=== PATIENT | male | born 1965 | race Caucasian/White ===

== ENCOUNTER 2018-09-11 10:22 | Emergency (ER) | payer MEDICAID ==
[~2018-09-11] VITALS: Ht 177.8 cm; Wt 72.6 kg
[2018-09-11] MEDS ORDERED: SODIUM CHLORIDE 0.9% 1,000 ML IVB ONE (10:38)
[2018-09-11] MEDS ORDERED: KETOROLAC TROMETH 30 MG/ML 1ML VIAL IV ONE (11:45)
[2018-09-11 12:09] LABS: Basophils # (auto) 0.1 uL; Basophils % (auto) 0.7 % (0.0-2.0); Eosinophils # (auto) 0 uL; Eosinophils % (auto) 0.2 % (0.0-7.0); Hematocrit 52.7 % (41.0-53.0); Hemoglobin 17.6 g/dL (13.5-17.5); Lymphocytes # (auto) 2.1 uL; Lymphocytes % (auto) 16.7 % (10.0-50.0); Mean Corpuscular Hemoglobin 33.3 pg (28.0-32.0); Mean Corpuscular Hgb Conc. 33.5 g/dL (32.0-36.0); Mean Corpuscular Volume 99.6 fL (80.0-100.0); Monocytes # (auto) 0.8 uL; Monocytes % (auto) 6.4 % (0.0-12.0); Neutrophils # (auto) 9.7 uL; Platelet Count (auto) 328 10^3/uL (140-450); Red Blood Cells 5.29 10^6/uL (4.5-5.90); Red Cell Distribution Width 13.7 % (11.8-14.3); White Blood Cell 12.8 10^3/uL (4.4-10.8)
[2018-09-11 12:46] LABS: Albumin 3.8 g/dL (3.4-5.0); BUN/Creatinine Ratio 22.2; Calcium 8.1 mg/dL (8.5-10.1); Magnesium 2.4 mg/dL (1.6-2.6); Potassium 4.2 mmol/L (3.5-5.1)
[2018-09-11 12:48] LABS: Bilirubin, Total 0.5 mg/dL (0.2-1.0); Total Protein 7.2 g/dL (6.4-8.2)
[2018-09-11 13:00] VITALS: BP 137/81
[2018-09-11 13:06] LABS: Blood Alcohol 381.2 mg/dL (0-5)
== END 2018-09-11 15:46 | disposition home or self-care (01) ==
LOC: ER 10:22 → EDBD 10:22 → ER 15:46
DX: S70.01XA Contusion of right hip, initial encounter (principal); S80.01XA Contusion of right knee, initial encounter; F10.129 Alcohol abuse with intoxication, unspecified; I10 Essential (primary) hypertension; F17.210 Nicotine dependence, cigarettes, uncomplicated; V03.99XA Pedestrian with other conveyance injured in collision with car, pick-up truck or van, unspecified whether traffic or nontraffic accident, initial encounter; Y93.89 Activity, other specified; Y99.8 Other external cause status; Y92.89 Other specified places as the place of occurrence of the external cause
CPT/HCPCS: 36415; 73502; 73562; 80053; 80320; 83735; 85025; 96361; 96374; 99284; J1885

== ENCOUNTER 2019-01-26 15:59 | Emergency (ER) | payer MEDICAID ==
[~2019-01-26] VITALS: Ht 175.3 cm; Wt 72.6 kg
[2019-01-26] MEDS ORDERED: SODIUM CHLORIDE 0.9% 3,000 ML IV ONE (18:45)
[2019-01-26 19:02] VITALS: BP 128/80
[2019-01-26 19:21] LABS: Basophils # (auto) 0 uL; Basophils % (auto) 0.5 % (0.0-2.0); Eosinophils # (auto) 0 uL; Eosinophils % (auto) 0.3 % (0.0-7.0); Lymphocytes # (auto) 1.8 uL; Monocytes # (auto) 0.5 uL; Neutrophils # (auto) 6.2 uL; Red Cell Distribution Width 13.5 % (11.8-14.3); White Blood Cell 8.5 10^3/uL (4.4-10.8)
[2019-01-26 19:23] LABS: Hematocrit 43.4 % (41.0-53.0); Lymphocytes % (auto) 20.8 % (10.0-50.0); Mean Corpuscular Hemoglobin 34.3 pg (28.0-32.0); Mean Corpuscular Hgb Conc. 34.6 g/dL (32.0-36.0); Monocytes % (auto) 5.4 % (0.0-12.0); Nucleated Red Blood Cells % 0.1 %; Platelet Count (auto) 222 10^3/uL (140-450); Red Blood Cells 4.38 10^6/uL (4.5-5.90)
[2019-01-26 19:33] LABS: Albumin 3.1 g/dL (3.4-5.0); Calcium 7.6 mg/dL (8.5-10.1); Potassium 4.2 mmol/L (3.5-5.1)
[2019-01-26 19:36] LABS: BUN/Creatinine Ratio 20.3; Bilirubin, Total 1.1 mg/dL (0.2-1.0); Total Protein 5.7 g/dL (6.4-8.2)
== END 2019-01-26 20:48 | disposition home or self-care (01) ==
LOC: EDUNIT# 15:59 → EDBD 15:59 → ER 15:59
DX: S01.01XA Laceration without foreign body of scalp, initial encounter (principal); S43.402A Unspecified sprain of left shoulder joint, initial encounter; I10 Essential (primary) hypertension; F17.210 Nicotine dependence, cigarettes, uncomplicated; F10.129 Alcohol abuse with intoxication, unspecified; W18.39XA Other fall on same level, initial encounter; Y93.89 Activity, other specified; Y99.8 Other external cause status; Y92.811 Bus as the place of occurrence of the external cause
CPT/HCPCS: 12002; 36415; 70450; 73030; 80053; 80320; 85025; 93005

== ENCOUNTER 2022-09-21 17:08 | Emergency (ER) | payer MEDICAID ==
[~2022-09-21] VITALS: Ht 177.8 cm; Wt 72.7 kg
[~2022-09-21 17:08] MED LIST: HYDR12.56 PO
[2022-09-21] MEDS ORDERED: MECLIZINE HCL 25 MG TAB PO ONE (19:00)
[2022-09-21 19:41] LABS: Basophils # (auto) 0.1 10 ^3/uL (0-0.2); Eosinophils # (auto) 0.1 10 ^3/uL (0-0.8); Eosinophils % (auto) 1.6 % (0.0-7.0); Hematocrit 49.2 % (41.0-53.0); Hemoglobin 16.7 g/dL (13.5-17.5); Lymphocytes # (auto) 2.5 10 ^3/uL (0.4-5.4); Lymphocytes % (auto) 29.9 % (10.0-50.0); Mean Corpuscular Volume 97.2 fL (80.0-100.0); Monocytes # (auto) 0.7 10 ^3/uL (0-1.3); Monocytes % (auto) 8.2 % (0.0-12.0); Neutrophils # (auto) 4.9 10 ^3/uL (1.6-8.6); Neutrophils % (auto) 59.3 % (37.0-80.0); Nucleated Red Blood Cells % 0.2 %; Red Blood Cells 5.06 10^6/uL (4.5-5.90); Red Cell Distribution Width 14.4 % (11.8-14.3); White Blood Cell 8.3 10^3/uL (4.4-10.8)
[2022-09-21 19:46] LABS: Potassium 4.4 mmol/L (3.5-5.1)
[2022-09-21 19:50] LABS: Albumin 3.7 g/dL (3.4-5.0); BUN/Creatinine Ratio 20.8; Calcium 8.9 mg/dL (8.5-10.1); Magnesium 2.3 mg/dL (1.6-2.6)
[2022-09-21 19:53] LABS: Bilirubin, Total 0.5 mg/dL (0.2-1.0); Total Protein 6.3 g/dL (6.4-8.2)
[2022-09-21 22:09] VITALS: BP 114/70
== END 2022-09-21 22:43 | disposition home or self-care (01) ==
LOC: EDBD 17:08 → ER 17:10
DX: R42 Dizziness and giddiness (principal); R51.9 Headache, unspecified; I10 Essential (primary) hypertension; Z59.00 Homelessness unspecified
CPT/HCPCS: 36415; 70450; 71045; 80053; 83735; 83880; 84484; 85025; 93005; 99285; J8597

== ENCOUNTER 2022-09-24 16:08 | Inpatient (IN) | payer MEDICAID ==
[~2022-09-24] VITALS: Ht 172.7 cm; Wt 71.2 kg
[2022-09-24 22:29] LABS: Basophils # (auto) 0.1 10 ^3/uL (0-0.2); Basophils % (auto) 0.9 % (0.0-2.0); Eosinophils # (auto) 0.1 10 ^3/uL (0-0.8); Eosinophils % (auto) 0.8 % (0.0-7.0); Hematocrit 45.2 % (41.0-53.0); Hemoglobin 15.8 g/dL (13.5-17.5); Lymphocytes # (auto) 2.5 10 ^3/uL (0.4-5.4); Lymphocytes % (auto) 29.7 % (10.0-50.0); Mean Corpuscular Hemoglobin 33.6 pg (28.0-32.0); Mean Corpuscular Volume 96.2 fL (80.0-100.0); Monocytes # (auto) 0.4 10 ^3/uL (0-1.3); Monocytes % (auto) 4.5 % (0.0-12.0); Neutrophils # (auto) 5.4 10 ^3/uL (1.6-8.6); Neutrophils % (auto) 64.1 % (37.0-80.0); Nucleated Red Blood Cells % 0.1 %; Red Cell Distribution Width 14.3 % (11.8-14.3); White Blood Cell 8.4 10^3/uL (4.4-10.8)
[2022-09-24 22:50] LABS: Albumin 3.3 g/dL (3.4-5.0); BUN/Creatinine Ratio 23.1; Calcium 8.1 mg/dL (8.5-10.1); Potassium 4.3 mmol/L (3.5-5.1)
[2022-09-24 22:52] LABS: Bilirubin, Total 0.2 mg/dL (0.2-1.0); Total Protein 5.8 g/dL (6.4-8.2)
[2022-09-25] MEDS ORDERED: MORPHINE SULFATE 4 MG/ML SYR/VIAL IV PRN (02:00)
[2022-09-25] MEDS ORDERED: LORazepam 0.5 MG TAB PO PRN (02:00)
[2022-09-25] MEDS ORDERED: ZOLPIDEM TARTRATE 5 MG TAB PO PRN (02:00)
[2022-09-25] MEDS ORDERED: ONDANSETRON HCL 4 MG/2 ML VIAL IV PRN (02:00)
[2022-09-25] MEDS ORDERED: NITROGLYCERIN 0.4 MG SL TAB SL PRN (02:00)
[2022-09-25] MEDS: SODIUM CHLORIDE 0.9% 1,000 ML IV SCH ×2 (02:51→16:16)
[2022-09-25 03:19] LABS: Urine Bacteria None Seen /hpf (None Seen); Urine WBC None Seen /hpf (0 - 3)
[2022-09-25 03:54] LABS: Urine Blood Normal /uL (Negative)
[2022-09-25 07:06] LABS: Basophils # (auto) 0.1 10 ^3/uL (0-0.2); Basophils % (auto) 0.8 % (0.0-2.0); Eosinophils # (auto) 0.1 10 ^3/uL (0-0.8); Hematocrit 47.5 % (41.0-53.0); Hemoglobin 15.9 g/dL (13.5-17.5); Lymphocytes # (auto) 1.8 10 ^3/uL (0.4-5.4); Lymphocytes % (auto) 19.3 % (10.0-50.0); Mean Corpuscular Hemoglobin 32.3 pg (28.0-32.0); Mean Corpuscular Hgb Conc. 33.4 g/dL (32.0-36.0); Mean Corpuscular Volume 96.7 fL (80.0-100.0); Monocytes # (auto) 0.4 10 ^3/uL (0-1.3); Monocytes % (auto) 4.4 % (0.0-12.0); Neutrophils # (auto) 7.1 10 ^3/uL (1.6-8.6); Neutrophils % (auto) 74.5 % (37.0-80.0); Red Blood Cells 4.91 10^6/uL (4.5-5.90); Red Cell Distribution Width 14.2 % (11.8-14.3); White Blood Cell 9.5 10^3/uL (4.4-10.8)
[2022-09-25 07:20] LABS: BUN/Creatinine Ratio 22.6; Potassium 4.3 mmol/L (3.5-5.1)
[2022-09-25] MEDS: CLOPIDOGREL BISULFATE 75 MG TAB PO SCH (09:24)
[2022-09-25] MEDS: DOCUSATE SOD 100 MG CAP PO SCH (09:24)
[2022-09-25] MEDS: ENOXAPARIN SOD 40 MG/0.4 ML SYRINGE SC SCH (09:24)
[2022-09-25] MEDS: ASPirin 81 mg TAB PO SCH (09:24)
[2022-09-25] MEDS: CARVEDILOL 3.125 MG TAB PO SCH ×2 (09:25→22:09)
[2022-09-25] MEDS: LISINOPRIL 5 MG TAB PO SCH (09:25)
[2022-09-25] MEDS ORDERED: ENOXAPARIN SOD 30 MG/0.3 ML SYRINGE IV SCH (10:00)
[2022-09-25 17:09] VITALS: BP 143/84
[2022-09-25] MEDS ORDERED: THIAMINE HCL 100 MG TAB PO ONE (17:45)
[2022-09-25] MEDS ORDERED: MULTIPLE VITAMINS W/ MINERALS TAB PO ONE (17:45)
[2022-09-25] MEDS ORDERED: FOLIC ACID 1 MG TAB PO ONE (17:45)
[2022-09-25 19:50] VITALS: BP 120/77
[2022-09-25 22:00] VITALS: BP 120/77
[2022-09-25] MEDS: ATORVASTATIN 20 MG TAB PO SCH (22:10)
[2022-09-25 23:09] LABS: Amphetamine Screen, Urine NEGATIVE (NEGATIVE); Barbiturate Scree,Urine NEGATIVE (NEGATIVE); Benzodiazephine Screen, Urine NEGATIVE (NEGATIVE); Cannabinoid Screen, Urine NEGATIVE (NEGATIVE); Cocaine Screen, Urine NEGATIVE (NEGATIVE); Opiate Scree,Urine NEGATIVE (NEGATIVE); Phencyclidine Screen, Urine NEGATIVE (NEGATIVE)
[2022-09-26 01:57] LABS: Urine Amorphous Crystal FEW /hpf (None Seen); Urine Bacteria NONE SEEN /hpf (None Seen); Urine Blood Negative /uL (Negative); Urine Specific Gravity 1.026 (1.001-1.035); Urine WBC 3 /hpf (0 - 3)
[2022-09-26] MEDS: SODIUM CHLORIDE 0.9% 1,000 ML IV SCH ×2 (04:55→18:00)
[2022-09-26 05:00] VITALS: BP 143/98
[2022-09-26 07:38] LABS: Potassium 4.5 mmol/L (3.5-5.1)
[2022-09-26 07:44] LABS: BUN/Creatinine Ratio 26.3; Calcium 8.5 mg/dL (8.5-10.1)
[2022-09-26 08:35] VITALS: BP 131/85
[2022-09-26] MEDS: THIAMINE HCL 100 MG TAB PO SCH (10:57)
[2022-09-26] MEDS: ASPirin 81 mg TAB PO SCH (10:57)
[2022-09-26] MEDS: FOLIC ACID 1 MG TAB PO SCH (10:57)
[2022-09-26] MEDS: DOCUSATE SOD 100 MG CAP PO SCH (10:58)
[2022-09-26] MEDS: LISINOPRIL 5 MG TAB PO SCH (10:59)
[2022-09-26] MEDS: MULTIPLE VITAMINS W/ MINERALS TAB PO SCH (10:59)
[2022-09-26] MEDS: CARVEDILOL 3.125 MG TAB PO SCH ×2 (10:59→21:33)
[2022-09-26 12:35] VITALS: BP 128/81
[2022-09-26 16:30] VITALS: BP 107/77
[2022-09-26] MEDS: CLOPIDOGREL BISULFATE 75 MG TAB PO SCH (16:44)
[2022-09-26] MEDS: ENOXAPARIN SOD 40 MG/0.4 ML SYRINGE SC SCH (16:45)
[2022-09-26] MEDS: ATORVASTATIN 20 MG TAB PO SCH (21:32)
[2022-09-26] MEDS: ACETAMINOPHEN 325 MG TAB PO PRN (21:39)
[2022-09-26 22:00] VITALS: BP 108/72
[2022-09-27 05:00] VITALS: BP 111/74
[2022-09-27] MEDS: SODIUM CHLORIDE 0.9% 1,000 ML IV SCH ×2 (05:23→20:56)
[2022-09-27 08:35] VITALS: BP 127/86
[2022-09-27] MEDS: ASPirin 81 mg TAB PO SCH (10:04)
[2022-09-27] MEDS: THIAMINE HCL 100 MG TAB PO SCH (10:05)
[2022-09-27] MEDS: FOLIC ACID 1 MG TAB PO SCH (10:05)
[2022-09-27] MEDS: DOCUSATE SOD 100 MG CAP PO SCH (10:05)
[2022-09-27] MEDS: MULTIPLE VITAMINS W/ MINERALS TAB PO SCH (10:06)
[2022-09-27] MEDS: CARVEDILOL 3.125 MG TAB PO SCH ×2 (10:06→22:01)
[2022-09-27] MEDS: CLOPIDOGREL BISULFATE 75 MG TAB PO SCH (10:07)
[2022-09-27] MEDS: ENOXAPARIN SOD 40 MG/0.4 ML SYRINGE SC SCH (10:07)
[2022-09-27] MEDS: LISINOPRIL 5 MG TAB PO SCH (10:07)
[2022-09-27 12:35] VITALS: BP 110/80
[2022-09-27 16:20] VITALS: BP 121/76
[2022-09-27 21:53] VITALS: BP 117/77
[2022-09-27] MEDS: ATORVASTATIN 20 MG TAB PO SCH (22:00)
[2022-09-27] MEDS: ACETAMINOPHEN 325 MG TAB PO PRN (22:01)
[2022-09-28 04:56] VITALS: BP 109/76
[2022-09-28 09:00] VITALS: BP 122/82
[2022-09-28] MEDS: ASPirin 81 mg TAB PO SCH (10:02)
[2022-09-28] MEDS: FOLIC ACID 1 MG TAB PO SCH (10:02)
[2022-09-28] MEDS: THIAMINE HCL 100 MG TAB PO SCH (10:02)
[2022-09-28] MEDS: CARVEDILOL 3.125 MG TAB PO SCH (10:03)
[2022-09-28] MEDS: MULTIPLE VITAMINS W/ MINERALS TAB PO SCH (10:03)
[2022-09-28] MEDS: DOCUSATE SOD 100 MG CAP PO SCH (10:03)
[2022-09-28] MEDS: ENOXAPARIN SOD 40 MG/0.4 ML SYRINGE SC SCH (10:04)
[2022-09-28] MEDS: LISINOPRIL 5 MG TAB PO SCH (10:04)
[2022-09-28] MEDS: CLOPIDOGREL BISULFATE 75 MG TAB PO SCH (10:04)
[2022-09-28] MEDS: SODIUM CHLORIDE 0.9% 1,000 ML IV SCH (10:09)
[2022-09-28 12:21] VITALS: BP 122/82
[2022-09-28 12:40] VITALS: BP 125/76
== END 2022-09-28 14:48 | disposition home or self-care (01) | DRG 111 ==
LOC: EDBD 16:08 → ER 16:08 → TELE 09-25 01:55 → TELE-WESTW 09-25 13:26
PROVIDERS: ADMIT Hospitalist; ATTEND Internal Medicine
DX: R42 Dizziness and giddiness (principal); I21.A1 Myocardial infarction type 2; S09.90XA Unspecified injury of head, initial encounter; F03.90 Unspecified dementia, unspecified severity, without behavioral disturbance, psychotic disturbance, mood disturbance, and anxiety; W01.0XXA Fall on same level from slipping, tripping and stumbling without subsequent striking against object, initial encounter; Z20.822 Contact with and (suspected) exposure to COVID-19; I10 Essential (primary) hypertension; Z59.00 Homelessness unspecified; Z80.6 Family history of leukemia; Z82.0 Family history of epilepsy and other diseases of the nervous system; Z82.49 Family history of ischemic heart disease and other diseases of the circulatory system; Z83.3 Family history of diabetes mellitus; Y93.89 Activity, other specified; Y92.89 Other specified places as the place of occurrence of the external cause; Y99.8 Other external cause status; Z71.41 Alcohol abuse counseling and surveillance of alcoholic; Z72.0 Tobacco use; F10.129 Alcohol abuse with intoxication, unspecified
CPT/HCPCS: 36415; 70450; 71045; 80048; 80053; 80061; 80307; 80320; 81001; 83036; 83735; 84439; 84443; 84484; 85025; 87426; 93005; 93306; 97163; G0378

== ENCOUNTER 2025-01-25 13:02 | Emergency (ER) | payer MEDICAID ==
[~2025-01-25] VITALS: Ht 177.8 cm; Wt 79.5 kg
[~2025-01-25 13:02] MED LIST changes: +APIX5TAB PO; +CEPH250C PO; +ESCI1TAB36 PO; +GAB100C PO; -HYDR12.56 PO; +HYDR12.59 PO; +MIRT1TAB40 PO; +TRAZ-227 PO
[2025-01-25 13:12] VITALS: BP 115/71; PULSE 77; RESP 16; TEMP 98.2; O2SAT 98
--- NOTE | 2025-01-25 13:20 | ECG ---
[facility] Test Date: 2025-01-25 Test Time: 13:11:28 Pat Name: MAYTE CHU Department: ED Room: Gender: M Derrick Helper: ANGELLA : 1965 Requested By: VLAD LABOY Order Number: [id number] Reading MD: Saurabh Delgado Measurements Intervals Bruno Rate: 78 P: -53 IA: 171 QRS: -51 QRSD: 95 T: 59 QT: 421 QTc: 480 Interpretive Statements Sinus or ectopic atrial rhythm Left axis deviation Borderline prolonged QT interval Electronically Signed On 01-27-2025 21:00:57 PDT by Saurabh Delgado Please click the below link to view image of tracing.
--- NOTE | 2025-01-25 13:37 | ED.PDOC ---
Alonsot. trauma (HPI) HPI Comments 59 y.o male presents to the ED for a chief complaint of left foot and head pain s/p mechanical fall today while walking in an intersection. Patient reported no syncope/fainting episode but does present with swelling to his left ankle and hematoma to the posterior side of his head. Patient reports positive head injury but denied any LOC, nausea, vomiting, chest pain. Patient described pain as sharp, worse with movement and rating a 6/10 on the pain scale. Chief Complaint: Fall Injury Time Seen by MD: 13:20 Primary Care Provider: CONNIE Reviewed notes: Nurses Notes, Medications, Allergies Allergies: Coded Allergies: NO KNOWN ALLERGIES (Unverified , 09/24/22) Home Meds Active Scripts Cephalexin (KEFLEX CAPSULE) 250 Mg Cp, 500 MG PO TID for 7 Days, #21 CAP Prov:ZIGGY ACOSTA MD 05/07/23 Apixaban Base (ELIQUIS) 5 Mg Tab, 5 MG PO BID for 30 Days, #60 TAB Prov:ZIGGY ACOSTA MD 05/07/23 Apixaban Base (ELIQUIS) 5 Mg Tab, 10 MG PO BID for 7 Days, #28 TAB Prov:ZIGGY CAOSTA MD 05/07/23 Reported Medications Trazodone Hcl (Trazodone Hcl) 50 Mg Tab, 1 TAB PO 05/05/23 Mirtazapine (Mirtazapine Oral Disintegrating Tablet) 45 Mg Tab, 1 TAB PO HS 05/05/23 Gabapentin (Gabapentin) 100 Mg Cap, 1 CAP PO TID 05/05/23 Escitalopram Oxalate (ESCITALOPRAM OXALATE) 10 Mg Tab, 1 TAB PO DAILY 05/05/23 Hydrochlorothiazide (Hydrochlorothiazide) 12.5 Mg Cap, 12.5 MG PO DAILY for 30 Days, MG 06/22/19 Information Source: Patient Mode of Arrival: EMS Severity: Moderate Timing: Hours Duration: Since onset Location: (L) Ankle, Head Location of laceration: None Mechanism: Fall Associated signs and symtoms: Other Past Medical History PAST MEDICAL HISTORY: Anxiety, HTN Surgical History: Denies all surgeries Family History Family History: Unknown Social History Smoker: Non-Smoker, Unknown Alcohol: Heavy Drugs: Denies Drug Use, Unknown Lives In: Home Constitutional: denies: chills, diaphoresis, fatigue, fever, malaise, sweats, weakness, others EENTM: denies: blurred vision, double vision, ear bleeding, ear discharge, ear drainage, ear pain, ear ringing, eye pain, eye redness, hearing loss, mouth pain, mouth swelling, nasal discharge, nose bleeding, nose congestion, nose pain, photophobia, tearing, throat pain, throat swelling, voice changes, others Respiratory: denies: cough, hemoptysis, orthopnea, SOB at rest, shortness of breath, SOB with excertion, stridor, wheezing, others Cardiovascular: denies: chest pain, dizzy spells, diaphoresis, Dyspnea on exertion, edema, irregular heart beat, left arm pain, lightheadedness, palpitations, PND, syncope, others Gastrointestinal: denies: abdomen distended, abdominal pain, blood streaked bowels, constipated, diarrhea, dysphagia, difficulty swallowing, hematemesis, melena, nausea, poor appetite, poor fluid intake, rectal bleeding, rectal pain, vomiting, others Genitourinary: denies: burning, dysuria, flank pain, frequency, hematuria, incontinence, penile discharge, penile sore, pain, testicle pain, testicle swelling, urgency, others Neurological: reports: headache; denies: dizziness, fainting, left sided numbness, left sided weakness, numbness, paresthesia, pre-existing deficit, right sided numbness, right sided weakness, seizure, speech problems, tingling, tremors, weakness, others Musculoskeletal: reports: others (left ankle pain and swelling ); denies: back pain, gout, joint pain, joint swelling, muscle pain, muscle stiffness, neck pain Integumetry: denies: bruises, change in color, change in hair/nails, dryness, laceration, lesions, lumps, rash, wounds, others Hematologic/Lymphatic: denies: anemia, blood clots, easy bleeding, easy bruising, swollen glands, others Endocrine: denies: excessive hunger, excessive sweating, excessive thirst, excessive urination, flushing, intolerance to cold, intolerance to heat, unexplained weight gain, unexplained weight loss, others Psychiatric: denies: anxiety, bipolar disorder, depression, hopeless, panic disorder, schizophrenia, sleepless, suicidal, others All Other Systems: Reviewed and Negative Physical Exam General Appearance: No Apparent Distress, Normal HEENT: NOT DONE Neck: Normal Inspection Respiratory: No Accessory Muscle Use, No Respiratory Distress, Normal Breath Sounds Cardiovascular: Normal Peripheral Pulses, Regular Rate/Rhythm Breast Exam: Deferred Gastrointestinal: NOT DONE Pelvic: Deferred Rectal: Deferred Extremities: Swelling (left ankle swelling ) Neurologic: Alert, Normal Affect, Normal Mood Cerebellar Function: Normal Reflexes: NOT DONE Skin: Dry, Normal Color Lymphatic: NOT DONE Was a procedure done? Was a procedure done?: No Differential Diagnosis Multiple Trauma: Closed Head Injury, Fractures, Abrasions, Contusion, Hematoma X-Ray, Labs, Meds, VS Vital Signs Date Time Temp Pulse Resp B/P (MAP) Pulse Ox O2 Delivery O2 Flow Rate FiO2 01/25/25 13:12 98.2 77 16 115/71 (86) 98 98.2 01/25/25 13:11 78 Time of 1ST Reevaluation: 13:38 Reevaluation 1ST: Unchanged Patient Education/Counseling: Diagnosis, Treatment, Prognosis Family Education/Counseling: No Family Present Critical Care Note Critical Care Time?: No Stability Stability form required: No Heart Score Heart Score: Heart Score Response (Comments) Value History N/A 0 EKG N/A 0 Age N/A 0 Risk Factors N/A 0 Troponin N/A 0 Total 0 I personally scribed for VLAD LABOY MD ([facility]) on 01/25/25 at 13:37. Electronically submitted by Yuliana Chávez ([facility]). I personally scribed for VLAD LABOY MD ([facility]) on 01/25/25 at 13:38. Electronically submitted by Yuliana Chávez ([facility]). VLAD LABOY MD Jan 25, 2025 13:37
== END 2025-01-25 16:42 | disposition left against medical advice (07) ==
LOC: EDBD 13:02 → ER 13:10
DX: M79.672 Pain in left foot (principal); R51.9 Headache, unspecified; F41.9 Anxiety disorder, unspecified; I10 Essential (primary) hypertension; Z79.899 Other long term (current) drug therapy; Z79.01 Long term (current) use of anticoagulants
CPT/HCPCS: 93005

== ENCOUNTER 2025-04-17 11:49 | Inpatient (IN) | payer MEDICAID ==
[~2025-04-17] VITALS: Ht 175.3 cm; Wt 64.5 kg
--- NOTE | 2025-04-17 12:22 | ED.PDOC ---
History of Present Illness HPI Comments 59-year-old male presents with a chief complaint of edema to his BLE. Patient has swelling that starts at his ankle and up to his distal calf. Patient denies any history of DVT, SOB, or Renal issues. Patient is able to ambulate and bear weight. Patient mentions that he has mild pain. Chief Complaint: Lower Extremity Time Seen by MD: 12:19 Primary Care Provider: ARNOLD Reviewed Notes: Medications, Allergies Allergies: Coded Allergies: NO KNOWN ALLERGIES (Unverified , 09/24/22) Home Meds Active Scripts Cephalexin (KEFLEX CAPSULE) 250 Mg Cp, 500 MG PO TID for 7 Days, #21 CAP Prov:ZIGGY ACOSTA MD 05/07/23 Apixaban Base (ELIQUIS) 5 Mg Tab, 5 MG PO BID for 30 Days, #60 TAB Prov:ZIGGY ACOSTA MD 05/07/23 Apixaban Base (ELIQUIS) 5 Mg Tab, 10 MG PO BID for 7 Days, #28 TAB Prov:ZIGGY ACOSTA MD 05/07/23 Reported Medications Trazodone Hcl (Trazodone Hcl) 50 Mg Tab, 1 TAB PO 05/05/23 Mirtazapine (Mirtazapine Oral Disintegrating Tablet) 45 Mg Tab, 1 TAB PO HS 05/05/23 Gabapentin (Gabapentin) 100 Mg Cap, 1 CAP PO TID 05/05/23 Escitalopram Oxalate (ESCITALOPRAM OXALATE) 10 Mg Tab, 1 TAB PO DAILY 05/05/23 Hydrochlorothiazide (Hydrochlorothiazide) 12.5 Mg Cap, 12.5 MG PO DAILY for 30 Days, MG 06/22/19 Information Source: Patient Mode of Arrival: Ambulatory Severity: Moderate Timing: Days Duration: Since onset Prehospital treatment: None Past Medical History PAST MEDICAL HISTORY: Anxiety, HTN Surgical History: Denies all surgeries Family History Family History: Unknown Social History Smoker: Non-Smoker, Unknown Alcohol: Heavy Drugs: Denies Drug Use, Unknown Lives In: Home Constitutional: denies: chills, diaphoresis, fatigue, fever, malaise, sweats, weakness, others EENTM: denies: blurred vision, double vision, ear bleeding, ear discharge, ear drainage, ear pain, ear ringing, eye pain, eye redness, hearing loss, mouth pain, mouth swelling, nasal discharge, nose bleeding, nose congestion, nose pain, photophobia, tearing, throat pain, throat swelling, voice changes, others Respiratory: denies: cough, hemoptysis, orthopnea, SOB at rest, shortness of breath, SOB with excertion, stridor, wheezing, others Cardiovascular: reports: edema; denies: chest pain, dizzy spells, diaphoresis, Dyspnea on exertion, irregular heart beat, left arm pain, lightheadedness, palpitations, PND, syncope, others Gastrointestinal: denies: abdomen distended, abdominal pain, blood streaked bowels, constipated, diarrhea, dysphagia, difficulty swallowing, hematemesis, melena, nausea, poor appetite, poor fluid intake, rectal bleeding, rectal pain, vomiting, others Genitourinary: denies: burning, dysuria, flank pain, frequency, hematuria, incontinence, penile discharge, penile sore, pain, testicle pain, testicle swelling, urgency, others Neurological: denies: dizziness, fainting, headache, left sided numbness, left sided weakness, numbness, paresthesia, pre-existing deficit, right sided numbness, right sided weakness, seizure, speech problems, tingling, tremors, weakness, others Musculoskeletal: denies: back pain, gout, joint pain, joint swelling, muscle pain, muscle stiffness, neck pain, others Integumetry: denies: bruises, change in color, change in hair/nails, dryness, laceration, lesions, lumps, rash, wounds, others Allergic/Immunocompromised: denies: Difficulty Healing, Frequent Infections, Hives, Itching, others Hematologic/Lymphatic: denies: anemia, blood clots, easy bleeding, easy bruising, swollen glands, others Endocrine: denies: excessive hunger, excessive sweating, excessive thirst, excessive urination, flushing, intolerance to cold, intolerance to heat, unexplained weight gain, unexplained weight loss, others Psychiatric: denies: anxiety, bipolar disorder, depression, hopeless, panic disorder, schizophrenia, sleepless, suicidal, others All Other Systems: Reviewed and Negative Physical Exam General Appearance: Moderate Distress, Normal HEENT: Normal ENT Inspection, Pharynx Normal, TMs Normal Neck: Full Range of Motion, Non-Tender, Normal, Normal Inspection Respiratory: Chest Non-Tender, Lungs Clear, No Accessory Muscle Use, No Respiratory Distress, Normal Breath Sounds Cardiovascular: No Edema, No JVD, No Murmur, No Gallop, Normal Peripheral Pulses, Regular Rate/Rhythm Breast Exam: Deferred Gastrointestinal: No Organomegaly, Non Tender, No Pulsatile Mass, Normal Bowel Sounds, Soft Genitalia: Deferred Pelvic: Deferred Rectal: Deferred Extremities: No calf tenderness, Normal capillary refill, Normal range of motion, Non-tender, No pedal edema, Swelling (Left lower extremity below-knee not along the calf) Musculoskeletal : Apperance: Normal Neurologic: Alert, program support clerk II-XII nml as Tested, No Motor Deficits, Normal Affect, Normal Mood, No Sensory Deficits Cerebellar Function: Normal Reflexes: Normal Skin: Dry, Normal Color, Warm Peripheral Pulses: 3+ Radial (R), 3+ Radial (L) Lymphatic: No Adenopathy Was a procedure done? Was a procedure done?: No Differential Dx Considerations may include: Cellulitis Electrolyte imbalance X-Ray, Labs, Meds, VS Vital Signs Date Time Temp Pulse Resp B/P (MAP) Pulse Ox O2 Delivery O2 Flow Rate FiO2 04/17/25 12:12 98.3 83 17 105/65 (78) 100 98.3 Patient alert. Complaining of leg swelling. The left is more swollen than the right extremity. Vitals stable. Cellulitis pain Was given Rocephin. Was given clindamycin. Explained to the patient. Continue monitoring. Time of 1ST Reevaluation: 12:49 Reevaluation 1ST: Unchanged Patient Education/Counseling: Diagnosis, Treatment, Need For Follow Up Family Education/Counseling: No Family Present SEPSIS Sepsis Screen Date sepsis recognized/suspect: Apr 17, 2025 Time Sepsis recognized/suspect: 1204 Recent Procedure: No On Antibiotic Therapy: No Respiratory Rate >20: No Heart Rate >90: No Temp<36 C (96.8 F) or >38.3 C: No SBP <90 or MAP <65 mmHG: No New Acute Mental Status Change: No Is the patient on CPAP, BIPAP,: No Physician Orders Complete Blood Count (04/17/25 12:22) Basic Metabolic Panel (04/17/25 12:22) Vital Signs Date Time Temp Pulse Resp B/P (MAP) Pulse Ox O2 Delivery O2 Flow Rate FiO2 04/17/25 12:12 98.3 83 17 105/65 (78) 100 98.3 Departure 1 Departure Time of Disposition: 12:29 Impression: Primary Impression: Cellulitis of lower extremity Qualified Codes: L03.116 - Cellulitis of left lower limb Disposition: 09 ADMITTED INPATIENT Admit to: Med Surg Condition: Guarded Critical Care Note Critical Care Time?: No Stability Stability form required: No Heart Score Heart Score: Heart Score Response (Comments) Value History N/A 0 EKG N/A 0 Age N/A 0 Risk Factors N/A 0 Troponin N/A 0 Total 0 I personally scribed for DOUG RAMOS MD ([email or web address]) on 04/17/25 at 12:22. Electronically submitted by Won Mcfarlane ([email or web address]). DOUG RAMOS MD Apr 17, 2025 12:22
[2025-04-17 12:50] LABS: Hematocrit 45.2 % (41.0-53.0); Hemoglobin 15.6 g/dL (13.5-17.5); Mean Corpuscular Hemoglobin 32.8 pg (28.0-32.0); Mean Corpuscular Volume 94.8 fL (80.0-100.0); Nucleated Red Blood Cells % 0.0 %
[2025-04-17 13:00] LABS: Potassium 3.8 mmol/L (3.5-5.1); Sodium 143 mmol/L (136-145)
[2025-04-17 13:01] LABS: Anion Gap 10 (5-15); Calcium 9.4 mg/dL (8.7-10.4); Carbon Dioxide 23 mmol/L (20-31)
[2025-04-17] MEDS: CLINDAMYCIN 300MG IV 50 ML IV ONE (13:01)
[2025-04-17] MEDS: cefTRIAXone 1GM/50ML D5W 50 ML IV ONE (13:01)
[2025-04-17 13:04] VITALS: PULSE 72; RESP 16; O2SAT 92
[2025-04-17 13:06] LABS: BUN/Creatinine Ratio 19.4 (10.0-20.0); Blood Urea Nitrogen 14 mg/dL (9-23); Glucose 77 mg/dL (74-106)
[2025-04-17 13:07] LABS: Chloride 110 mmol/L (98-107)
[2025-04-17] MEDS ORDERED: ACETAMINOPHEN 325 MG TAB PO PRN (19:15)
[2025-04-17] MEDS ORDERED: DOCUSATE SOD 100 MG CAP PO PRN (19:15)
[2025-04-17] MEDS ORDERED: ONDANSETRON HCL 4 MG/2 ML VIAL IV PRN (19:15)
--- NOTE | 2025-04-17 19:16 | DVHHP2 ---
Admitting Diagnosis: Lower leg swelling bilateral History of Present Illness 59-year-old male presents with a chief complaint of edema to his BLE. Patient has swelling that starts at his ankle and up to his distal calf. Patient denies any history of DVT, SOB, or Renal issues. Patient is able to ambulate and bear weight. Patient mentions that he has mild pain. PAST MEDICAL HISTORY: Anxiety, HTN Surgical History: Denies all surgeries Family History Family History: Unknown Social History Smoker: Non-Smoker, Unknown Alcohol: Heavy Drugs: Denies Drug Use, Unknown Lives In: Home Patient Family History: Alzheimer's disease G8 FATHER, Cardiovascular disease Diabetes mellitus FH: Alzheimers disease FH: leukemia G8 MOTHER, Allergies: Coded Allergies: NO KNOWN ALLERGIES (Unverified , 09/24/22) Home Meds Active Scripts Cephalexin (KEFLEX CAPSULE) 250 Mg Cp, 500 MG PO TID for 7 Days, #21 CAP Prov:ZIGGY ACOSTA MD 05/07/23 Apixaban Base (ELIQUIS) 5 Mg Tab, 5 MG PO BID for 30 Days, #60 TAB Prov:ZIGGY ACOSTA MD 05/07/23 Apixaban Base (ELIQUIS) 5 Mg Tab, 10 MG PO BID for 7 Days, #28 TAB Prov:ZIGGY ACOSTA MD 05/07/23 Reported Medications Trazodone Hcl (Trazodone Hcl) 50 Mg Tab, 1 TAB PO 05/05/23 Mirtazapine (Mirtazapine Oral Disintegrating Tablet) 45 Mg Tab, 1 TAB PO HS 05/05/23 Gabapentin (Gabapentin) 100 Mg Cap, 1 CAP PO TID 05/05/23 Escitalopram Oxalate (ESCITALOPRAM OXALATE) 10 Mg Tab, 1 TAB PO DAILY 05/05/23 Hydrochlorothiazide (Hydrochlorothiazide) 12.5 Mg Cap, 12.5 MG PO DAILY for 30 Days, MG 06/22/19 Current Medications Current Medications Medications (Trade) Dose Ordered Sig/Alida Route PRN Reason Start Time Stop Time Status Last Admin Sodium Chloride (Saline Lock Ns) 10 ml Q8HR IV 04/17/25 22:00 UNV Docusate Sodium (Colace Capsule) 100 mg BIDPRN PRN PO FOR CONSTIPATION 04/17/25 19:15 UNV Acetaminophen (Tylenol Tablet) 650 mg Q6HP PRN PO PAIN SCALE 1-3 OR TEMP>100.4 04/17/25 19:15 UNV Acetaminophen/ Hydrocodone Bitart ([place] 5/325MG Tab) 1 tab Q4HP PRN PO MODERATE PAIN (4-6 PAIN SCALE) 04/17/25 19:15 UNV Ondansetron HCl (Zofran) 4 mg Q4HP PRN IV NAUSEA / VOMITING 04/17/25 19:15 UNV Enoxaparin Sodium (Lovenox) 40 mg DAILY SC 04/18/25 10:00 UNV Apixaban (Eliquis) 10 mg BID PO 04/17/25 22:00 UNV Gabapentin (Neurontin Capsule) 100 mg TID PO 04/17/25 22:00 UNV Patient Own Medication 1 tab DAILY PO 04/18/25 10:00 UNV Patient Own Medication 12.5 mg DAILY PO 04/18/25 10:00 UNV Patient Own Medication 1 tab HS PO 04/17/25 22:00 UNV Vital Signs Vital Signs Date Time Temp Pulse Resp B/P (MAP) Pulse Ox O2 Delivery O2 Flow Rate FiO2 04/17/25 19:10 98.4 82 18 108/72 (84) 95 98.4 04/17/25 13:04 Room Air* 0 21 Results Labs Test 04/17/25 12:38 Range/Units White Blood Count 7.6 4.4-10.8 10^3/uL Red Blood Count 4.77 4.5-5.90 10^6/uL Hemoglobin 15.6 13.5-17.5 g/dL Hematocrit 45.2 41.0-53.0 % Mean Corpuscular Volume 94.8 80.0-100.0 fL Mean Corpuscular Hemoglobin 32.8 H 28.0-32.0 pg Mean Corpuscular Hemoglobin Concent 34.6 32.0-36.0 g/dL Red Cell Distribution Width 14.9 H 11.8-14.3 % Platelet Count 296 140-450 10^3/uL Mean Platelet Volume 7.7 6.9-10.8 fL Neutrophils (%) (Auto) 69.0 37.0-80.0 % Lymphocytes (%) (Auto) 21.8 10.0-50.0 % Monocytes (%) (Auto) 8.2 0.0-12.0 % Eosinophils (%) (Auto) 0.3 0.0-7.0 % Basophils (%) (Auto) 0.7 0.0-2.0 % Neutrophils # (Auto) 5.3 1.6-8.6 10 ^3/uL Lymphocytes # (Auto) 1.7 0.4-5.4 10 ^3/uL Monocytes # (Auto) 0.6 0-1.3 10 ^3/uL Eosinophils # (Auto) 0 0-0.8 10 ^3/uL Basophils # (Auto) 0.1 0-0.2 10 ^3/uL Nucleated Red Blood Cells 0.0 % Sodium Level 143 136-145 mmol/L Potassium Level 3.8 3.5-5.1 mmol/L Chloride Level 110 H 98-107 mmol/L Carbon Dioxide Level 23 20-31 mmol/L Anion Gap 10 5-15 Blood Urea Nitrogen 14 9-23 mg/dL Creatinine 0.72 0.700-1.30 mg/dL Glomerular Filtration Rate Calc 104 >90 mL/min BUN/Creatinine Ratio 19.4 10.0-20.0 Serum Glucose 77 74-106 mg/dL Calcium Level 9.4 8.7-10.4 mg/dL Primary Diagnosis Bilateral lower extremity edema rule out heart failure and DVT History of lower extremity DVT Plan He had a gradual lower extremity edema Check echo of the heart to rule out heart failure Patient denies prior blood clot but chart in 2021 patient had lower extremity DVT on Eliquis Check bilateral lower extremity for DVT If positive restart Eliquis for DVT Regular diet Full code Lovenox for DVT prophylaxis Plan discussed with: Patient Problems List: (1) Lower extremity edema Status: Acute Date of Service: Apr 17, 2025 Billing Provider: JONATHAN MILLER MD Common Visit Codes: [id number] INP/OBS CARE (MOD) JONATHAN MILLER MD Apr 17, 2025 19:16
[2025-04-17] MEDS ORDERED: APIXABAN 5 MG TAB PO SCH (22:00)
[2025-04-17] MEDS: GABAPENTIN 100 MG CAP PO SCH (22:08)
[2025-04-17] MEDS: SODIUM CHLOR 0.9% PF (SALINE LOCK) 10ML VIAL/SYR IV SCH (22:08)
--- NOTE | 2025-04-17 22:14 | DVH ---
CLINICAL HISTORY: lower leg edema r/o dvt TECHNIQUE: Color and duplex doppler imaging of the bilateral lower extremity veins was performed. Ves saúl compression if possible was also performed. WID: COMPARISON: US RT LOWER DVT on DOS: 05/05/23 FINDINGS: Right Lower Extremity: Right common femoral vein: Normal compressibility and flow. Right femoral vein: Normal compressibility and flow. Right popliteal vein: Normal compressibility and flow. Proximal calf veins are normally compressible. Left Lower Extremity: Left common femoral vein: Normal compressibility and flow. Left femoral vein: Normal compressibility and flow. Left popliteal vein: Normal compressibility and flow. Proximal calf veins are normally compressible. IMPRESSION: NO SONOGRAPHIC EVIDENCE FOR DEEP VENOUS THROMBOSIS IN THE BILATERAL LOWER EXTREMITY VEINS.
[2025-04-17] MEDS: HYDROcodone-ACET 5/325MG TAB PO PRN (22:46)
[2025-04-17 22:51] VITALS: BP 134/90; PULSE 69; PULSE 73; RESP 17; RESP 18; TEMP 97.9; O2SAT 96
[2025-04-17] MEDS ORDERED: HYDR-4798 PO (22:54)
[2025-04-17] MEDS ORDERED: OLAN1TAB75 PO (22:57)
[2025-04-18 01:00] VITALS: BP 118/81; PULSE 63; RESP 18; TEMP 98; O2SAT 94
[2025-04-18 05:00] VITALS: BP 129/88; PULSE 61; RESP 19; TEMP 97.7; O2SAT 95
[2025-04-18 05:40] LABS: Hematocrit 42.2 % (41.0-53.0); Hemoglobin 14.5 g/dL (13.5-17.5); Mean Corpuscular Hemoglobin 32.8 pg (28.0-32.0); Mean Corpuscular Volume 95.5 fL (80.0-100.0); Nucleated Red Blood Cells % 0.2 %
[2025-04-18 05:56] LABS: Albumin 3.8 g/dL (3.2-4.8); Alkaline Phosphatase 60 U/L (46-116); Anion Gap 7 (5-15); BUN/Creatinine Ratio 22.7 (10.0-20.0); Bilirubin, Total 0.6 mg/dL (0.2-1.0); Blood Urea Nitrogen 15 mg/dL (9-23); Calcium 9.2 mg/dL (8.7-10.4); Carbon Dioxide 26 mmol/L (20-31); Glucose 87 mg/dL (74-106); Potassium 3.6 mmol/L (3.5-5.1); Sodium 145 mmol/L (136-145)
[2025-04-18 05:58] LABS: Alanine Aminotransferase < 9 U/L (7-40); Chloride 112 mmol/L (98-107); Total Protein 5.4 g/dL (5.7-8.2)
[2025-04-18 08:00] VITALS: PULSE 67; RESP 18
[2025-04-18 08:49] VITALS: BP 148/103; PULSE 63; RESP 16; TEMP 97.9; O2SAT 94
[2025-04-18] MEDS: CITALOPRAM HYDROBR 20 MG TAB PO SCH (09:17)
[2025-04-18] MEDS: hydroCHLOROthiazide 25 MG TAB PO SCH (09:18)
[2025-04-18] MEDS: ENOXAPARIN SOD 40 MG/0.4 ML SYRINGE SC SCH (09:18)
--- NOTE | 2025-04-18 11:28 | DVHPN2 ---
Reviewed: Care Plan, H&P, Labs, Medications, Previous Orders, Radiology Changes from previous H/P or p: No Changes General: Per HPI Objective Vitals Vital Signs Date Time Temp Pulse Resp B/P (MAP) Pulse Ox O2 Delivery O2 Flow Rate FiO2 04/18/25 09:18 132/90 04/18/25 08:49 97.9 63 16 94 97.9 04/17/25 22:51 Room Air* 0 21 Intake/Output Intake and Output 04/18/25 07:00 Intake Total 340 ml Balance 340 ml Intake Oral 240 ml IV Total 100 ml General Appearance: Alert, Oriented X3 Cardiovascular: Regular rate, Normal S1, Normal S2 Neuro: Normal gait, Normal speech Medications Current Medications Medications Dose Ordered Sig/Alida Route Start Time Stop Time Status Last Admin Dose Admin Sodium Chloride 10 ml Q8HR IV 04/17/25 22:00 04/18/25 05:28 10 ML Docusate Sodium 100 mg BIDPRN PRN PO 04/17/25 19:15 Acetaminophen 650 mg Q6HP PRN PO 04/17/25 19:15 Acetaminophen/ Hydrocodone Bitart 1 tab Q4HP PRN PO 04/17/25 19:15 04/18/25 09:41 1 TAB Ondansetron HCl 4 mg Q4HP PRN IV 04/17/25 19:15 Enoxaparin Sodium 40 mg DAILY SC 04/18/25 10:00 04/18/25 09:18 40 MG Gabapentin 100 mg TID PO 04/17/25 22:00 04/18/25 05:28 100 MG Citalopram Hydrobromide 20 mg DAILY PO 04/18/25 10:00 04/18/25 09:17 20 MG Hydrochlorothiazide 12.5 mg DAILY PO 04/18/25 10:00 04/18/25 09:18 12.5 MG Mirtazapine 45 mg HS PO 04/18/25 22:00 Laboratory Results Laboratory Tests 04/18/25 05:10 Chemistry Test 04/17/25 12:38 04/18/25 05:10 Calcium Level 9.4 mg/dL (8.7-10.4) 9.2 mg/dL (8.7-10.4) Albumin 3.8 g/dL (3.2-4.8) Total Protein 5.4 g/dL (5.7-8.2) L LFT Test 04/18/25 05:10 Alanine Aminotransferase (ALT) < 9 U/L (7-40) Alkaline Phosphatase 60 U/L (46-116) Aspartate Amino Transferase (AST) 17 U/L (13-40) Total Bilirubin 0.6 mg/dL (0.2-1.0) Labs and/or images reviewed: Labs reviewed by me, Image(s) reviewed by me Assessment/Plan Assessment/Plan Bilateral lower extremity edema rule out heart failure and DVT History of lower extremity DVT leg edema b/l 04/18/2025: Echocardiogram completed which shows a retracted fraction of more than 50% Edema is improved. Possible discharge within 24 Plan discussed with: Patient Date of Service: Apr 18, 2025 Billing Provider: LUZ MARIA LAZCANO DO Common Visit Codes: [id number] INP/OBS CARE(HIGH) LUZ MARIA LAZCANO DO Apr 18, 2025 11:28
--- NOTE | 2025-04-18 12:22 | DVHSR ---
APPROVED REPORT EXAM: Two-dimensional and M-mode echocardiogram with Doppler and color Doppler. Blood Pressure: 148/103 mmHg INDICATION B/L lower leg edema R/O CHF RISK FACTORS Height: 5'9", Weight: 142 DIMENSIONS LVDd5.0 (3.8-5.7cm)LA (2D)3.6 (1.9-4.0cm)Aortic Root3.6 (2.0-3.7cm) LVDs3.6 (2.5-4.0cm)LA (MM) (1.9-4.0cm)Aortic Cusp Exc2.0 (1.5-2.0cm) EF (%) 55.0 (55-70%)Rt. Atrium3.8 (1.9-4.0cm)Asc. Aorta cm IVSd1.2 (0.7-1.1cm)RV (D) (1.8-2.4cm) PWd0.9 (0.7-1.1cm) Mitral Valve MitralMitral Stenosis E wave0.54m/sMV Mean GR.mmHg A wave0.88m/sMV Peak GR.mmHg E/A ratio0.62D MVAcm2 DECEL [id number] 1/2 Timems Aortic Valve Aortic ValveAortic Stenosis V11.09m/Fatuma Mean GR.3mmHg V21.12m/Fatuma Peak GR.5mmHg LVOT Diameter2.4 (1.8-2.4cm)Doppler AVA4.40cm2 Other Information Technically limited study due to body habitus. Conclusion lvef 55% moderate LVH normal rv function no severe valve abnormalities noted
[2025-04-18 12:51] VITALS: BP 125/81; PULSE 61; RESP 16; TEMP 98.3; O2SAT 97
[2025-04-18] MEDS ORDERED: FURO1TAB31 PO (13:41)
--- NOTE | 2025-04-18 13:43 | DVHDS2 ---
Discharge Summary Date of Admission Apr 17, 2025 at 19:11 Date of Discharge: Apr 18, 2025 Labs/Diagnostic Data: Laboratory Results Test 04/18/25 05:10 White Blood Count 5.1 10^3/uL (4.4-10.8) Red Blood Count 4.41 10^6/uL (4.5-5.90) Hemoglobin 14.5 g/dL (13.5-17.5) Hematocrit 42.2 % (41.0-53.0) Mean Corpuscular Volume 95.5 fL (80.0-100.0) Mean Corpuscular Hemoglobin 32.8 pg (28.0-32.0) Mean Corpuscular Hemoglobin Concent 34.3 g/dL (32.0-36.0) Red Cell Distribution Width 14.9 % (11.8-14.3) Platelet Count 249 10^3/uL (140-450) Mean Platelet Volume 7.8 fL (6.9-10.8) Neutrophils (%) (Auto) 54.0 % (37.0-80.0) Lymphocytes (%) (Auto) 32.8 % (10.0-50.0) Monocytes (%) (Auto) 10.8 % (0.0-12.0) Eosinophils (%) (Auto) 1.8 % (0.0-7.0) Basophils (%) (Auto) 0.6 % (0.0-2.0) Neutrophils # (Auto) 2.8 10 ^3/uL (1.6-8.6) Lymphocytes # (Auto) 1.7 10 ^3/uL (0.4-5.4) Monocytes # (Auto) 0.6 10 ^3/uL (0-1.3) Eosinophils # (Auto) 0.1 10 ^3/uL (0-0.8) Basophils # (Auto) 0 10 ^3/uL (0-0.2) Nucleated Red Blood Cells 0.2 % Sodium Level 145 mmol/L (136-145) Potassium Level 3.6 mmol/L (3.5-5.1) Chloride Level 112 mmol/L (98-107) Carbon Dioxide Level 26 mmol/L (20-31) Anion Gap 7 (5-15) Blood Urea Nitrogen 15 mg/dL (9-23) Creatinine 0.66 mg/dL (0.700-1.30) Glomerular Filtration Rate Calc 107 mL/min (>90) BUN/Creatinine Ratio 22.7 (10.0-20.0) Serum Glucose 87 mg/dL (74-106) Calcium Level 9.2 mg/dL (8.7-10.4) Total Bilirubin 0.6 mg/dL (0.2-1.0) Aspartate Amino Transferase (AST) 17 U/L (13-40) Alanine Aminotransferase (ALT) < 9 U/L (7-40) Alkaline Phosphatase 60 U/L (46-116) Total Protein 5.4 g/dL (5.7-8.2) Albumin 3.8 g/dL (3.2-4.8) Other Laboratory Tests 04/18/25 05:10 Brief Hx & Hospital Course: 59-year-old male presents with a chief complaint of edema to his BLE. Patient has swelling that starts at his ankle and up to his distal calf. Patient denies any history of DVT, SOB, or Renal issues. Patient is able to ambulate and bear weight. Patient mentions that he has mild pain. PAST MEDICAL HISTORY: Anxiety, HTN Surgical History: Denies all surgeries Family History Family History: Unknown Social History Smoker: Non-Smoker, Unknown Alcohol: Heavy Drugs: Denies Drug Use, Unknown Lives In: Home Bilateral lower extremity edema rule out heart failure and DVT History of lower extremity DVT leg edema b/l CHF rule out 04/18/2025: Echocardiogram completed which shows a retracted fraction of more than 50% Edema is improved. Possible discharge within 24 Condition at Discharge: Fair Final Diagnosis/Problems List see above Discharge Disposition: Home Discharge Instruct/Medications Diet: Cardiac 2g Na,low cholest Activity: No Restrictions, As Tolerated Scheduled Apixaban Base (Eliquis), 10 MG PO BID Apixaban Base (Eliquis), 5 MG PO BID Cephalexin (Keflex Capsule), 500 MG PO TID Escitalopram Oxalate (Escitalopram Oxalate), 1 TAB PO DAILY, (Reported) Furosemide (Lasix), 20 MG PO DAILY Gabapentin (Gabapentin), 1 CAP PO TID, (Reported) Hydrochlorothiazide (Hydrochlorothiazide), 12.5 MG PO DAILY, (Reported) Mirtazapine (Mirtazapine Oral Disintegrating Tablet), 1 TAB PO HS, (Reported) Olanzapine (Olanzapine), 50 MG PO HS, (Reported) Scheduled PRN Hydrocodone-Acetaminophen (Hydrocodone Bitartrate/AC 10-325 mg), 1 TAB PO Q8HP PRN for PAIN SCALE 1 THRU 6, (Reported) Miscellaneous Medications Trazodone Hcl (Trazodone Hcl), 1 TAB PO, (Reported) Discharge Statement: "Patient was advised to return to the ER or call 911 if any headaches, dizziness, shortness of breath, chest pain, abdominal pain, bleeding, fevers, or worsening of medical condition. Patient was counseled about treatment plan, medications, possible side effects, patientverbalized understanding. All questions were answered to the best of my ability. This discharge took greater then 30 minutes in planning, reviewing documentation, counseling the patient, and discussing with other team members." ASSESSMENT ASSESSMENT Assessment Date of Service: Apr 18, 2025 Billing Provider: LUZ MARIA LAZCANO DO Common Visit Codes: 61753-WMS/OBS DISCH DAY >30min LUZ MARIA LAZCANO DO Apr 18, 2025 13:43
[2025-04-18 14:22] VITALS: BP 132/90; PULSE 78; RESP 18; TEMP 36.8
[2025-04-18] MEDS ORDERED: MIRTAZAPINE 30 MG TAB PO SCH (22:00)
== END 2025-04-18 15:30 | disposition home or self-care (01) | DRG 194 ==
LOC: ER 11:49 → OVERFLOW 19:11 → WEST WING 22:26
PROVIDERS: ADMIT Internal Medicine; ATTEND Internal Medicine
DX: I11.0 Hypertensive heart disease with heart failure (principal); F41.9 Anxiety disorder, unspecified; Z80.6 Family history of leukemia; Z82.0 Family history of epilepsy and other diseases of the nervous system; Z86.718 Personal history of other venous thrombosis and embolism; Z83.3 Family history of diabetes mellitus; Z82.49 Family history of ischemic heart disease and other diseases of the circulatory system; I50.31 Acute diastolic (congestive) heart failure
CPT/HCPCS: 36415; 80048; 80053; 85025; 93306; 93970; G0378; J3490